=== PATIENT | female | born 1940 | race Caucasian/White ===

== ENCOUNTER → 2017-05-07 | Outpatient (CLI) | payer MEDICARE, OTHER ==
[~2017-05-07] MED LIST: ACET-1757 PO; AMLO5TAB4 PO; ESTR1.5T4 PO; FEXO180T72 PO; HYDR1TAB12 PO; ONDA4TAB13 SL; OXYC-302 PO; PROC10TA PO; VALS160T3 PO; VERA200C2 PO; [UNRECOGNIZED DRUG - OTHER]; [UNRECOGNIZED DRUG - REMARK]
== END | disposition home or self-care (01) ==
LOC: CFH 13:33
PROVIDERS: ATTEND Physician Assistant
DX: M51.16 Intervertebral disc disorders with radiculopathy, lumbar region (principal); M48.061 Spinal stenosis, lumbar region without neurogenic claudication
CPT/HCPCS: 72148

== ENCOUNTER → 2017-06-19 | Outpatient (CLI) | payer MEDICARE, OTHER ==
[~2017-06-19] MED LIST changes: +[UNRECOGNIZED DRUG - REMARK] PO
[2017-06-19 13:41] LABS: BASOPHILS # (AUTO) 0.04 x10^3/uL (0-0.1); BASOPHILS % (AUTO) 1 % (0-1); EOSINOPHILS # (AUTO) 0.09 x10^3/uL (0-0.4); EOSINOPHILS % (AUTO) 2 % (1-7); LYMPHOCYTES # (AUTO) 0.54 x10^3/uL (1-3.4); LYMPHOCYTES % (AUTO) 13 % (22-44); MD NO; MEAN CORPUSCULAR HEMOGLOBIN 28.7 pg (27.0-34.8); MEAN CORPUSCULAR HGB CONC 33.4 g/dL (32.4-35.8); MEAN CORPUSCULAR VOLUME 85.9 fL (80-100); MONOCYTES # (AUTO) 0.39 x10^3/uL (0.2-0.8); MONOCYTES % (AUTO) 9 % (2-9); NEUTROPHILS # (AUTO) 3.14 x10^3/uL (1.8-6.8); NEUTROPHILS % (AUTO) 75 % (42-75); PLATELET COUNT 231 x10^3/uL (130-400); RED BLOOD COUNT 4.29 x10^6/uL (3.82-5.3); RED CELL DISTRIBUTION WIDTH 15.4 % (9.6-15.2)
[2017-06-19 13:46] LABS: INTERNATIONAL NORMALIZED RATIO 0.96 (0.93-1.1)
[2017-06-19 13:49] LABS: ALANINE AMINOTRANSFERASE 16 U/L (12-78); ALBUMIN 3.9 g/dL (3.4-5.0); ANION GAP 8 mmol/L (5-15); CALCIUM 9.5 mg/dL (8.5-10.1); CHLORIDE 110 mmol/L (98-107); CREATININE 1.34 mg/dL (0.55-1.02)
[2017-06-19 13:52] LABS: ALKALINE PHOSPHATASE 63 U/L (45-117); BILIRUBIN,TOTAL 0.4 mg/dL (0.2-1.0)
[2017-06-19 13:57] LABS: MICROSCOPIC AUTO
[2017-06-19 14:42] LABS: CULTURE INDICATED? YES
== END | disposition home or self-care (01) ==
LOC: STAR 12:16
PROVIDERS: ATTEND Neurological Surgery
DX: Z01.818 Encounter for other preprocedural examination (principal); I44.5 Left posterior fascicular block; I10 Essential (primary) hypertension; M51.9 Unspecified thoracic, thoracolumbar and lumbosacral intervertebral disc disorder; M54.16 Radiculopathy, lumbar region; R91.8 Other nonspecific abnormal finding of lung field
CPT/HCPCS: 36415; 71046; 80053; 81001; 85025; 85610; 85730; 87077; 87086; 87186; 93005

== ENCOUNTER 2017-06-25 05:22 | Day surgery (SDC) | payer MEDICARE, OTHER ==
[2017-06-19 13:09] VITALS: BP 107/66
[~2017-06-25] VITALS: Ht 157.5 cm; Wt 78.3 kg
[2017-06-25] MEDS ORDERED: BUPIVACAINE/PF 0.5% ONE (06:16)
[2017-06-25] MEDS ORDERED: VANCOMYCIN 1,000 MG ONE (06:17)
[2017-06-25] MEDS ORDERED: THROMBIN 5,000 UNIT VIAL TP ONE (06:17)
[2017-06-25] MEDS ORDERED: EPINEPHRINE 1 MG/ML, 1ML ONE (06:18)
[2017-06-25] MEDS ORDERED: BACITRACIN 50,000 UNIT ONE (06:18)
[2017-06-25] MEDS ORDERED: LIDOCAINE 1%, 2ML SQ PRN (06:30)
[2017-06-25] MEDS ORDERED: LACTATED RINGERS 1,000 ML IV SCH (06:30)
[2017-06-25] MEDS ORDERED: CIPR500T3 PO (06:32)
[2017-06-25 06:33] VITALS: BP 107/66
[2017-06-25] MEDS ORDERED: TRAM50TA2 PO (06:33)
[2017-06-25] MEDS ORDERED: FAMOTIDINE 20 MG TABLET ONE (06:50)
[2017-06-25] MEDS ORDERED: GABAPENTIN 300 MG CAPSULE ONE (06:50)
[2017-06-25] MEDS ORDERED: FENTANYL PF 250 MCG/5ML ONE (06:51)
[2017-06-25] MEDS ORDERED: KETAMINE 10 MG/ML, 20ML ONE (06:51)
[2017-06-25] MEDS ORDERED: ACETAMINOPHEN 500 MG TABLET ONE (06:51)
[2017-06-25] MEDS ORDERED: TAMSULOSIN 0.4 MG CAP.ER.24H ONE (06:51)
[2017-06-25] MEDS ORDERED: FAMOTIDINE 20 MG TABLET PO ONE (07:00)
[2017-06-25] MEDS ORDERED: GABAPENTIN 300 MG CAPSULE PO ONE (07:00)
[2017-06-25] MEDS ORDERED: ACETAMINOPHEN 500 MG TABLET PO ONE (07:00)
[2017-06-25] MEDS ORDERED: TAMSULOSIN 0.4 MG CAP.ER.24H PO ONE (07:00)
[2017-06-25] MEDS ORDERED: LIDOCAINE-MPF 2% ,5ML ONE (07:04)
[2017-06-25] MEDS ORDERED: PROPOFOL 10 MG/ML, 20ML ONE (07:04)
[2017-06-25] MEDS ORDERED: NEOSTIGMINE 1 MG/ML, 10ML ONE (07:04)
[2017-06-25] MEDS ORDERED: SUCCINYLCHOLINE 20 MG/ML, 10ML ONE (07:04)
[2017-06-25] MEDS ORDERED: ROCURONIUM 10 MG/ML,10ML ONE (07:04)
[2017-06-25] MEDS ORDERED: CEFAZOLIN 1,000 MG ONE (07:04)
[2017-06-25] MEDS ORDERED: ONDANSETRON 2MG/ML, 2ML ONE (07:04)
[2017-06-25] MEDS ORDERED: GLYCOPYRROLATE 0.2MG/1ML, 5ML ONE (07:04)
[2017-06-25] MEDS ORDERED: EPHEDRINE 50 MG/ML, 1ML ONE (07:04)
[2017-06-25] MEDS ORDERED: LIDOCAINE-MPF 1%, 2ML ONE (07:13)
[2017-06-25] MEDS ORDERED: morphine SULFATE 10 MG/ML, 1ML IV PRN (08:00)
[2017-06-25] MEDS ORDERED: PROMETHAZINE 25 MG/ML, 1ML IV PRN (08:00)
[2017-06-25] MEDS ORDERED: ALBUTEROL SULFATE 2.5 MG/3 ML NPPB PRN (08:00)
[2017-06-25] MEDS ORDERED: DIAZEPAM 5 MG/ML, 2ML IVPush PRN (08:00)
[2017-06-25] MEDS ORDERED: OXYcodone 5 MG/5 ML ORAL.SOL UDC PO PRN (08:00)
[2017-06-25] MEDS ORDERED: OXYC-302 PO (08:21)
[2017-06-25] MEDS ORDERED: METH500T97 PO (08:21)
[2017-06-25] MEDS ORDERED: FENTANYL PF 100 MCG/2ML ONE (08:29)
[2017-06-25] MEDS ORDERED: OXYcodone 5 MG/5 ML ORAL.SOL UDC ONE (08:30)
[2017-06-25] MEDS: FENTANYL PF 100 MCG/2ML IV PRN ×4 (08:37→09:27)
[2017-06-25] MEDS ORDERED: PROMETHAZINE 25 MG/ML, 1ML ONE (09:07)
== END 2017-06-25 12:15 ==
LOC: OUT 05:22
PROVIDERS: ATTEND Neurological Surgery
DX: M51.17 Intervertebral disc disorders with radiculopathy, lumbosacral region (principal); M48.061 Spinal stenosis, lumbar region without neurogenic claudication; I10 Essential (primary) hypertension
CPT/HCPCS: 63030; 63056; 72100; J0171; J0330; J0690; J2405; J2550; J2704; J2710; J3010; J3370; J3490; J7120

== ENCOUNTER → 2017-09-02 | Outpatient (CLI) | payer MEDICARE, OTHER ==
[~2017-09-02] MED LIST changes: +CIPR500T3 PO; +METH500T97 PO; +TRAM50TA2 PO
[2017-09-02 12:50] LABS: BASOPHILS # (AUTO) 0.02 x10^3/uL (0-0.1); BASOPHILS % (AUTO) 1 % (0-1); EOSINOPHILS # (AUTO) 0.14 x10^3/uL (0-0.4); EOSINOPHILS % (AUTO) 3 % (1-7); LYMPHOCYTES # (AUTO) 0.83 x10^3/uL (1-3.4); LYMPHOCYTES % (AUTO) 17 % (22-44); MD NO; MEAN CORPUSCULAR HEMOGLOBIN 29.3 pg (27.0-34.8); MEAN CORPUSCULAR HGB CONC 33.9 g/dL (32.4-35.8); MEAN CORPUSCULAR VOLUME 86.6 fL (80-100); MEAN PLATELET VOLUME 7.7 fL (7.4-10.4); MONOCYTES % (AUTO) 8 % (2-9); NEUTROPHILS # (AUTO) 3.43 x10^3/uL (1.8-6.8); NEUTROPHILS % (AUTO) 71 % (42-75); PLATELET COUNT 243 x10^3/uL (130-400); RED BLOOD COUNT 4.13 x10^6/uL (3.82-5.3)
[2017-09-02 13:02] LABS: ALANINE AMINOTRANSFERASE 24 U/L (12-78); ALBUMIN 3.9 g/dL (3.4-5.0); ANION GAP 11 mmol/L (5-15); CALCIUM 9.2 mg/dL (8.5-10.1); CHLORIDE 109 mmol/L (98-107); CHOLESTEROL, TOTAL 167 mg/dL (140-239); CREATININE 1.27 mg/dL (0.55-1.02)
[2017-09-02 13:12] LABS: ALKALINE PHOSPHATASE 64 U/L (45-117); BILIRUBIN,TOTAL 0.4 mg/dL (0.2-1.0); CHOL/HDL RATIO 2.1; HDL CHOL % 48 % (28-40); HDL CHOLESTEROL (DIRECT) 80 mg/dL (40-60); LDL CHOLESTEROL,CALCULATED 67 mg/dL (54-169); LDL/HDL RATIO 0.8 (0.5-3.0); TRIGLYCERIDES 99 mg/dL (50-200); VLDL CHOLESTEROL 20 mg/dL (0-25)
[2017-09-02 13:26] LABS: HEMOGLOBIN A1C 6.7 % (4.2-6.3)
== END | disposition home or self-care (01) ==
LOC: LAB 12:36
PROVIDERS: ATTEND Internal Medicine
DX: I10 Essential (primary) hypertension (principal); R73.03 Prediabetes; R94.6 Abnormal results of thyroid function studies
CPT/HCPCS: 36415; 80053; 80061; 83036; 84443; 85025

== ENCOUNTER → 2017-09-16 | Outpatient (CLI) | payer MEDICARE, OTHER | END | disposition home or self-care (01) | LOC: CFH 11:12 | PROVIDERS: ATTEND Neurological Surgery | DX: M51.37 Other intervertebral disc degeneration, lumbosacral region (principal); Z78.0 Asymptomatic menopausal state | CPT/HCPCS: 77080 ==

== ENCOUNTER → 2017-10-15 | Outpatient (CLI) | payer MEDICARE, OTHER ==
[~2017-10-15] MED LIST changes: +CYCL-259 PO; +HYDR-3240 PO; +POLY10DR3 EACHEYE; -PROC10TA PO; +PROC10TA2 PO
[2017-10-15 15:10] LABS: BASOPHILS # (AUTO) 0.06 x10^3/uL (0-0.1); BASOPHILS % (AUTO) 1 % (0-1); EOSINOPHILS # (AUTO) 0.17 x10^3/uL (0-0.4); EOSINOPHILS % (AUTO) 3 % (1-7); LYMPHOCYTES # (AUTO) 1.09 x10^3/uL (1-3.4); LYMPHOCYTES % (AUTO) 19 % (22-44); MD NO; MEAN CORPUSCULAR HEMOGLOBIN 29.2 pg (27.0-34.8); MEAN CORPUSCULAR HGB CONC 33.4 g/dL (32.4-35.8); MEAN CORPUSCULAR VOLUME 87.2 fL (80-100); MEAN PLATELET VOLUME 7.8 fL (7.4-10.4); MONOCYTES # (AUTO) 0.49 x10^3/uL (0.2-0.8); MONOCYTES % (AUTO) 9 % (2-9); NEUTROPHILS # (AUTO) 3.84 x10^3/uL (1.8-6.8); NEUTROPHILS % (AUTO) 68 % (42-75); PLATELET COUNT 252 x10^3/uL (130-400); RED BLOOD COUNT 4.15 x10^6/uL (3.82-5.3); RED CELL DISTRIBUTION WIDTH 15.7 % (9.6-15.2)
[2017-10-15 15:17] LABS: INTERNATIONAL NORMALIZED RATIO 0.96 (0.93-1.1); PROTHROMBIN TIME 9.9 Seconds (9.6-11.5)
[2017-10-15 15:19] LABS: MICROSCOPIC AUTO
[2017-10-15 15:22] LABS: ALANINE AMINOTRANSFERASE 23 U/L (12-78); ALBUMIN 3.8 g/dL (3.4-5.0); ANION GAP 3 mmol/L (5-15); CALCIUM 9.1 mg/dL (8.5-10.1); CHLORIDE 108 mmol/L (98-107); CREATININE 1.65 mg/dL (0.55-1.02)
[2017-10-15 15:24] LABS: ALKALINE PHOSPHATASE 73 U/L (45-117); BILIRUBIN,TOTAL 0.3 mg/dL (0.2-1.0); TOTAL PROTEIN 7.9 g/dL (6.4-8.2)
[2017-10-15 15:26] LABS: CULTURE INDICATED? YES
== END | disposition home or self-care (01) ==
LOC: STAR 13:48
PROVIDERS: ATTEND Neurological Surgery
DX: Z01.818 Encounter for other preprocedural examination (principal); M51.36 Other intervertebral disc degeneration, lumbar region; Z85.41 Personal history of malignant neoplasm of cervix uteri; M54.16 Radiculopathy, lumbar region; M48.062 Spinal stenosis, lumbar region with neurogenic claudication
CPT/HCPCS: 36415; 71046; 72110; 80053; 81001; 85025; 85610; 85730; 87086; 93005

== ENCOUNTER 2017-10-21 05:11 | Inpatient (IN) | payer MEDICARE, OTHER ==
[~2017-10-21] VITALS: Ht 157.5 cm; Wt 71.9 kg
[~2017-10-21 05:11] MED LIST changes: -CYCL-259 PO
[2017-10-21] MEDS ORDERED: LACTATED RINGERS 1,000 ML IV SCH (05:48)
[2017-10-21 06:10] VITALS: BP 117/59
[2017-10-21] MEDS ORDERED: PROPOFOL 10 MG/ML, 20ML ONE (06:33)
[2017-10-21] MEDS ORDERED: CEFAZOLIN 1,000 MG ONE ×2 (06:34)
[2017-10-21] MEDS ORDERED: SUCCINYLCHOLINE 20 MG/ML, 10ML ONE (06:34)
[2017-10-21] MEDS ORDERED: ROCURONIUM 10MG/ML,5ML ONE (06:34)
[2017-10-21] MEDS ORDERED: LIDOCAINE-MPF 2% ,5ML ONE (06:34)
[2017-10-21] MEDS ORDERED: FENTANYL PF 250 MCG/5ML ONE (06:38)
[2017-10-21] MEDS ORDERED: MIDAZOLAM 1 MG/ML, 2ML ONE (06:38)
[2017-10-21] MEDS ORDERED: PROPOFOL 50 ML ONE (06:39)
[2017-10-21] MEDS ORDERED: EPHEDRINE 50 MG/ML, 1ML IVPush PRN (07:00)
[2017-10-21] MEDS ORDERED: ONDANSETRON ODT 8 MG PO PRN (07:00)
[2017-10-21] MEDS ORDERED: GABAPENTIN 300 MG CAPSULE PO ONE (07:00)
[2017-10-21] MEDS ORDERED: OXYcodone IR 5MG TABLET PO ONE (07:00)
[2017-10-21] MEDS ORDERED: ONDANSETRON ODT 8 MG PO ONE (07:00)
[2017-10-21] MEDS ORDERED: hydrALAzine 20 MG/ML, 1ML IV PRN (07:00)
[2017-10-21] MEDS ORDERED: MORPHINE SULFATE 4 MG/ML, 1ML IVPush PRN (07:00)
[2017-10-21] MEDS ORDERED: DIAZEPAM 5 MG/ML, 2ML IVPush PRN (07:00)
[2017-10-21] MEDS ORDERED: ALBUTEROL SULFATE 2.5 MG/3 ML NPPB PRN (07:00)
[2017-10-21] MEDS ORDERED: OXYcodone 5 MG/5 ML ORAL.SOL UDC PO PRN (07:00)
[2017-10-21] MEDS ORDERED: FENTANYL PF 100 MCG/2ML IV PRN (07:00)
[2017-10-21] MEDS ORDERED: METOPROLOL 1 MG/ML, 5ML IV PRN (07:00)
[2017-10-21] MEDS ORDERED: ACETAMINOPHEN 500 MG TABLET PO ONE (07:00)
[2017-10-21] MEDS ORDERED: LABETALOL 5MG/ML, 20ML IV PRN (07:00)
[2017-10-21] MEDS ORDERED: PROMETHAZINE 25 MG/ML, 1ML IV PRN (07:00)
[2017-10-21] MEDS ORDERED: BACITRACIN 50,000 UNIT IRRIG ONE (07:33)
[2017-10-21] MEDS ORDERED: THROMBIN 20,000 UNIT VIAL TP ONE ×2 (07:34→11:05)
[2017-10-21] MEDS ORDERED: HEPARIN 1,000 UNITS/ML, 30ML IVPB ONE (07:40)
[2017-10-21] MEDS ORDERED: NEOSTIGMINE 1 MG/ML, 10ML ONE (08:41)
[2017-10-21] MEDS ORDERED: ONDANSETRON 2MG/ML, 2ML ONE (08:42)
[2017-10-21] MEDS ORDERED: GLYCOPYRROLATE 0.4 MG/2 ML, 2ML ONE (08:42)
[2017-10-21] MEDS ORDERED: LABETALOL 5MG/ML, 20ML IVPush PRN (09:00)
[2017-10-21] MEDS ORDERED: VALSARTAN 160 MG TABLET PO SCH ×2 (09:00→22:30)
[2017-10-21] MEDS ORDERED: AMLODIPINE 5 MG TABLET PO SCH (09:00)
[2017-10-21] MEDS ORDERED: ONDANSETRON 2MG/ML, 2ML IVPush PRN (09:00)
[2017-10-21] MEDS ORDERED: PHARMACY MAY ADJ FOR RENAL FX MC PRN (09:00)
[2017-10-21] MEDS: POLYTRIM OPHTH 10ML EACHEYE SCH ×5 (09:00→23:02)
[2017-10-21] MEDS ORDERED: SENNA/DOCUSATE TABLET PO PRN (09:00)
[2017-10-21] MEDS ORDERED: OXYcodone/APAP 5/325MG TABLET PO PRN (09:00)
[2017-10-21] MEDS ORDERED: BISACODYL 10 MG SUPP PR PRN (09:00)
[2017-10-21] MEDS ORDERED: PROMETHAZINE 25 MG/ML, 1ML IM PRN (09:00)
[2017-10-21] MEDS ORDERED: DIPHENHYDRAMINE 50 MG CAPSULE PO PRN (09:00)
[2017-10-21] MEDS ORDERED: DIPHENHYDRAMINE 50 MG/ML, 1ML IVPush PRN (09:00)
[2017-10-21] MEDS ORDERED: MAGNESIUM HYDROXIDE 8%, 30ML UDC PO PRN (09:00)
[2017-10-21] MEDS: NS + 20MEQ KCL 1,000 ML IV SCH ×2 (09:00→20:40)
[2017-10-21] MEDS ORDERED: MORPHINE SULFATE 4 MG/ML, 1ML ONE (09:17)
[2017-10-21] MEDS ORDERED: OXYcodone 5 MG/5 ML ORAL.SOL UDC ONE (10:01)
[2017-10-21] MEDS ORDERED: HEPARIN 1,000 UNITS/ML, 30ML ONE (11:01)
[2017-10-21 12:48] VITALS: BP 102/59
[2017-10-21] MEDS: CEFAZOLIN PMX 1GM/50ML 50 ML IVPB SCH ×2 (15:02→23:01)
[2017-10-21 19:16] VITALS: BP 115/58
[2017-10-21] MEDS: HYDROcodone/APAP 5/325 TABLET PO PRN (22:10)
[2017-10-22 00:05] VITALS: BP 127/67
[2017-10-22] MEDS: POLYTRIM OPHTH 10ML EACHEYE SCH ×7 (01:30→21:00)
[2017-10-22 03:51] VITALS: BP 107/56
[2017-10-22] MEDS: HYDROcodone/APAP 5/325 TABLET PO PRN ×4 (04:28→21:49)
[2017-10-22 05:16] LABS: BASOPHILS # (AUTO) 0.04 x10^3/uL (0-0.1); BASOPHILS % (AUTO) 1 % (0-1); EOSINOPHILS # (AUTO) 0.08 x10^3/uL (0-0.4); EOSINOPHILS % (AUTO) 1 % (1-7); LYMPHOCYTES # (AUTO) 0.71 x10^3/uL (1-3.4); LYMPHOCYTES % (AUTO) 11 % (22-44); MD NO; MEAN CORPUSCULAR HEMOGLOBIN 28.9 pg (27.0-34.8); MEAN CORPUSCULAR HGB CONC 33.2 g/dL (32.4-35.8); MEAN CORPUSCULAR VOLUME 87.2 fL (80-100); MEAN PLATELET VOLUME 8.1 fL (7.4-10.4); MONOCYTES # (AUTO) 0.47 x10^3/uL (0.2-0.8); MONOCYTES % (AUTO) 7 % (2-9); NEUTROPHILS # (AUTO) 5.06 x10^3/uL (1.8-6.8); NEUTROPHILS % (AUTO) 80 % (42-75); PLATELET COUNT 174 x10^3/uL (130-400); RED BLOOD COUNT 3.78 x10^6/uL (3.82-5.3); RED CELL DISTRIBUTION WIDTH 16.3 % (9.6-15.2)
[2017-10-22 05:26] LABS: ANION GAP 9 mmol/L (5-15); CHLORIDE 111 mmol/L (98-107)
[2017-10-22 05:27] LABS: CREATININE 1.32 mg/dL (0.55-1.02)
[2017-10-22 07:20] VITALS: BP 95/57
[2017-10-22] MEDS: AMLODIPINE 5 MG TABLET PO SCH (09:04)
[2017-10-22] MEDS ORDERED: ENOXAPARIN 30 MG/0.3 ML SQ SCH (11:00)
[2017-10-22] MEDS: NS + 20MEQ KCL 1,000 ML IV SCH (11:42)
[2017-10-22 12:48] VITALS: BP 113/60
[2017-10-22 20:16] VITALS: BP 123/66
[2017-10-22] MEDS: LORATADINE 10 MG TABLET PO SCH (21:49)
[2017-10-22] MEDS: VALSARTAN 160 MG TABLET PO SCH (21:49)
[2017-10-23] MEDS: NS + 20MEQ KCL 1,000 ML IV SCH ×2 (00:51→21:00)
[2017-10-23] MEDS: POLYTRIM OPHTH 10ML EACHEYE SCH ×8 (03:00→22:14)
[2017-10-23 03:03] VITALS: BP 127/62
[2017-10-23 06:00] LABS: BASOPHILS # (AUTO) 0.03 x10^3/uL (0-0.1); BASOPHILS % (AUTO) 1 % (0-1); EOSINOPHILS # (AUTO) 0.18 x10^3/uL (0-0.4); EOSINOPHILS % (AUTO) 3 % (1-7); LYMPHOCYTES # (AUTO) 0.95 x10^3/uL (1-3.4); LYMPHOCYTES % (AUTO) 15 % (22-44); MD NO; MEAN CORPUSCULAR HEMOGLOBIN 29.6 pg (27.0-34.8); MEAN CORPUSCULAR HGB CONC 33.6 g/dL (32.4-35.8); MEAN CORPUSCULAR VOLUME 88.1 fL (80-100); MONOCYTES # (AUTO) 0.63 x10^3/uL (0.2-0.8); MONOCYTES % (AUTO) 10 % (2-9); NEUTROPHILS # (AUTO) 4.72 x10^3/uL (1.8-6.8); NEUTROPHILS % (AUTO) 72 % (42-75); PLATELET COUNT 167 x10^3/uL (130-400); RED BLOOD COUNT 3.29 x10^6/uL (3.82-5.3); RED CELL DISTRIBUTION WIDTH 15.7 % (9.6-15.2)
[2017-10-23 06:09] LABS: ANION GAP 5 mmol/L (5-15); CALCIUM 8.5 mg/dL (8.5-10.1); CHLORIDE 112 mmol/L (98-107); CREATININE 1.11 mg/dL (0.55-1.02)
[2017-10-23 06:52] VITALS: BP 134/68
[2017-10-23] MEDS ORDERED: HYDROmorphone 2 MG/ML, 1ML ONE (08:14)
[2017-10-23] MEDS: HYDROmorphone 1 MG/ML, 1ML IVPush PRN ×2 (08:18→08:25)
[2017-10-23] MEDS: AMLODIPINE 5 MG TABLET PO SCH (08:19)
[2017-10-23] MEDS: HYDROcodone/APAP 5/325 TABLET PO PRN (12:38)
[2017-10-23 13:29] VITALS: BP 132/73
[2017-10-23] MEDS ORDERED: CEFAZOLIN 1,000 MG ONE ×2 (15:44)
[2017-10-23] MEDS ORDERED: FENTANYL PF 250 MCG/5ML ONE (15:44)
[2017-10-23] MEDS ORDERED: WATER-INJECTION,STERILE 10 ML IV ONE (15:44)
[2017-10-23] MEDS ORDERED: PROPOFOL 10 MG/ML, 20ML ONE (15:46)
[2017-10-23] MEDS ORDERED: ROCURONIUM 10MG/ML,5ML ONE (15:47)
[2017-10-23] MEDS ORDERED: GLYCOPYRROLATE 0.2MG/1ML, 5ML ONE (15:48)
[2017-10-23] MEDS ORDERED: NEOSTIGMINE 1 MG/ML, 10ML ONE (15:48)
[2017-10-23] MEDS ORDERED: PROPOFOL 50 ML ONE ×2 (15:52→17:14)
[2017-10-23] MEDS ORDERED: ACETAMINOPHEN 500 MG TABLET PO ONE (16:00)
[2017-10-23] MEDS ORDERED: ONDANSETRON ODT 8 MG PO PRN ×2 (16:00→16:30)
[2017-10-23] MEDS ORDERED: GABAPENTIN 300 MG CAPSULE PO ONE (16:00)
[2017-10-23] MEDS ORDERED: EPINEPHRINE 1 MG/ML, 1ML ONE (16:02)
[2017-10-23] MEDS ORDERED: THROMBIN 5,000 UNIT VIAL TP ONE (16:02)
[2017-10-23] MEDS ORDERED: BUPIVACAINE/PF 0.5% ONE (16:02)
[2017-10-23] MEDS ORDERED: BACITRACIN 50,000 UNIT ONE (16:03)
[2017-10-23] MEDS ORDERED: ONDANSETRON 2MG/ML, 2ML ONE ×2 (16:18)
[2017-10-23] MEDS ORDERED: DEXAMETHASONE 4 MG/ML, 1ML ONE ×2 (16:19)
[2017-10-23] MEDS ORDERED: VANCOMYCIN 1,000 MG ONE (16:20)
[2017-10-23] MEDS ORDERED: MEPERIDINE/PF 25MG/0.5ML IVPush PRN (16:30)
[2017-10-23] MEDS ORDERED: FENTANYL PF 100 MCG/2ML IV PRN (16:30)
[2017-10-23] MEDS ORDERED: PROMETHAZINE 25 MG/ML, 1ML IM PRN (16:30)
[2017-10-23] MEDS ORDERED: MORPHINE SULFATE 4 MG/ML, 1ML IVPush PRN (16:30)
[2017-10-23] MEDS ORDERED: PROMETHAZINE 25 MG SUPP PR PRN (16:30)
[2017-10-23] MEDS ORDERED: PROMETHAZINE 12.5 MG SUPP PR PRN (16:30)
[2017-10-23] MEDS ORDERED: PROMETHAZINE 25 MG/ML, 1ML IV PRN (16:30)
[2017-10-23] MEDS ORDERED: HYDROmorphone 1 MG/ML, 1ML IV PRN (16:30)
[2017-10-23] MEDS ORDERED: LABETALOL 5MG/ML, 20ML IV PRN (16:30)
[2017-10-23] MEDS ORDERED: OXYcodone 5 MG/5 ML ORAL.SOL UDC PO PRN (16:30)
[2017-10-23] MEDS ORDERED: hydrALAzine 20 MG/ML, 1ML IV PRN (16:30)
[2017-10-23] MEDS ORDERED: OXYcodone 5 MG/5 ML ORAL.SOL UDC ONE (19:12)
[2017-10-23] MEDS ORDERED: PROMETHAZINE 25 MG/ML, 1ML ONE (19:33)
[2017-10-23 20:56] VITALS: BP 114/63
[2017-10-23] MEDS: LORATADINE 10 MG TABLET PO SCH (22:14)
[2017-10-23] MEDS: VALSARTAN 160 MG TABLET PO SCH (22:14)
[2017-10-24 00:46] VITALS: BP 92/55
[2017-10-24] MEDS: POLYTRIM OPHTH 10ML EACHEYE SCH ×10 (00:58→23:57)
[2017-10-24 04:28] VITALS: BP 106/60
[2017-10-24 05:09] LABS: BASOPHILS # (AUTO) 0.03 x10^3/uL (0-0.1); BASOPHILS % (AUTO) 0 % (0-1); EOSINOPHILS # (AUTO) 0.31 x10^3/uL (0-0.4); EOSINOPHILS % (AUTO) 5 % (1-7); LYMPHOCYTES # (AUTO) 0.77 x10^3/uL (1-3.4); LYMPHOCYTES % (AUTO) 12 % (22-44); MD NO; MEAN CORPUSCULAR HEMOGLOBIN 29.2 pg (27.0-34.8); MEAN CORPUSCULAR HGB CONC 33.4 g/dL (32.4-35.8); MEAN CORPUSCULAR VOLUME 87.4 fL (80-100); MONOCYTES # (AUTO) 0.54 x10^3/uL (0.2-0.8); MONOCYTES % (AUTO) 9 % (2-9); NEUTROPHILS # (AUTO) 4.72 x10^3/uL (1.8-6.8); NEUTROPHILS % (AUTO) 74 % (42-75); PLATELET COUNT 165 x10^3/uL (130-400); RED BLOOD COUNT 3.35 x10^6/uL (3.82-5.3); RED CELL DISTRIBUTION WIDTH 15.7 % (9.6-15.2)
[2017-10-24 05:10] LABS: ANION GAP 6 mmol/L (5-15); CALCIUM 8.8 mg/dL (8.5-10.1); CHLORIDE 111 mmol/L (98-107)
[2017-10-24 05:11] LABS: CREATININE 1.26 mg/dL (0.55-1.02)
[2017-10-24] MEDS: HYDROcodone/APAP 5/325 TABLET PO PRN ×3 (06:18→21:17)
[2017-10-24 07:01] VITALS: BP 109/49
[2017-10-24] MEDS ORDERED: ENOXAPARIN 40 MG/0.4 ML SQ SCH (09:00)
[2017-10-24] MEDS: AMLODIPINE 5 MG TABLET PO SCH (09:01)
[2017-10-24] MEDS: NS + 20MEQ KCL 1,000 ML IV SCH (10:47)
[2017-10-24 13:31] VITALS: BP 105/65
[2017-10-24 20:38] VITALS: BP 110/55
[2017-10-24] MEDS: VALSARTAN 160 MG TABLET PO SCH (21:00)
[2017-10-24] MEDS: LORATADINE 10 MG TABLET PO SCH (21:14)
[2017-10-25 01:43] VITALS: BP 101/62
[2017-10-25 05:54] LABS: ANION GAP 3 mmol/L (5-15); CALCIUM 8.4 mg/dL (8.5-10.1); CHLORIDE 111 mmol/L (98-107); CREATININE 1.18 mg/dL (0.55-1.02)
[2017-10-25] MEDS ORDERED: ENOXAPARIN 30 MG/0.3 ML SQ SCH (06:00)
[2017-10-25 06:02] LABS: BASOPHILS # (AUTO) 0.03 x10^3/uL (0-0.1); BASOPHILS % (AUTO) 1 % (0-1); EOSINOPHILS # (AUTO) 0.26 x10^3/uL (0-0.4); EOSINOPHILS % (AUTO) 4 % (1-7); LYMPHOCYTES # (AUTO) 0.86 x10^3/uL (1-3.4); LYMPHOCYTES % (AUTO) 14 % (22-44); MD NO; MEAN CORPUSCULAR HEMOGLOBIN 29.3 pg (27.0-34.8); MEAN CORPUSCULAR HGB CONC 33.5 g/dL (32.4-35.8); MEAN CORPUSCULAR VOLUME 87.7 fL (80-100); MEAN PLATELET VOLUME 7.9 fL (7.4-10.4); MONOCYTES # (AUTO) 0.58 x10^3/uL (0.2-0.8); MONOCYTES % (AUTO) 10 % (2-9); NEUTROPHILS # (AUTO) 4.23 x10^3/uL (1.8-6.8); NEUTROPHILS % (AUTO) 71 % (42-75); PLATELET COUNT 190 x10^3/uL (130-400); RED BLOOD COUNT 3.37 x10^6/uL (3.82-5.3); RED CELL DISTRIBUTION WIDTH 15.6 % (9.6-15.2)
[2017-10-25] MEDS: POLYTRIM OPHTH 10ML EACHEYE SCH ×2 (06:06→08:45)
[2017-10-25] MEDS: HYDROcodone/APAP 5/325 TABLET PO PRN ×2 (06:09→10:52)
[2017-10-25 08:00] VITALS: BP 136/75
[2017-10-25] MEDS ORDERED: CYCL-259 PO (08:40)
[2017-10-25] MEDS ORDERED: HYDR-3240 PO (08:41)
[2017-10-25] MEDS: AMLODIPINE 5 MG TABLET PO SCH (08:41)
[2017-10-25] MEDS: VALSARTAN 160 MG TABLET PO SCH (08:42)
[2017-10-25] MEDS ORDERED: NS + 20MEQ KCL 1,000 ML IV SCH (09:00)
[2017-10-25 10:45] VITALS: BP 125/80
== END 2017-10-25 11:05 | disposition home or self-care (01) | DRG 453 ==
LOC: ORIP 05:11 → 4NOR 10:22
PROVIDERS: ADMIT Neurological Surgery; ATTEND Neurological Surgery
PROC: 0SB40ZZ Excision of Lumbosacral Disc, Open Approach (ICD-10-PCS; 2017-10-21)
PROC: 4A11X4G Monitoring of Peripheral Nervous Electrical Activity, Intraoperative, External Approach (ICD-10-PCS; 2017-10-21)
PROC: 0SG30A0 Fusion of Lumbosacral Joint with Interbody Fusion Device, Anterior Approach, Anterior Column, Open Approach (ICD-10-PCS; principal; 2017-10-21 07:00)
PROC: 0SG3071 Fusion of Lumbosacral Joint with Autologous Tissue Substitute, Posterior Approach, Posterior Column, Open Approach (ICD-10-PCS; 2017-10-23)
PROC: 4A11X4G Monitoring of Peripheral Nervous Electrical Activity, Intraoperative, External Approach (ICD-10-PCS; 2017-10-23)
DX: M51.17 Intervertebral disc disorders with radiculopathy, lumbosacral region (principal); N17.0 Acute kidney failure with tubular necrosis; G89.29 Other chronic pain; M54.9 Dorsalgia, unspecified; E66.9 Obesity, unspecified; M48.061 Spinal stenosis, lumbar region without neurogenic claudication; R10.9 Unspecified abdominal pain; Z68.29 Body mass index [BMI] 29.0-29.9, adult; I10 Essential (primary) hypertension
CPT/HCPCS: 36415; 72100; 74018; 80048; 85025; 86850; 86900; C1713; C1729; C1776; J0171; J0690; J1100; J1170; J1644; J1650; J2250; J2405; J2550; J2704; J2710; J3010; J3370; J3480; J3490; Q0162; C1762; J0330; J7120

== ENCOUNTER 2018-02-02 13:41 | Emergency (ER) | payer MEDICARE, OTHER ==
[~2018-02-02] VITALS: Ht 157.5 cm; Wt 79.2 kg
[~2018-02-02 13:41] MED LIST changes: +CYCL-259 PO
[2018-02-02 14:51] VITALS: BP 133/76
== END 2018-02-02 15:35 | disposition home or self-care (01) ==
LOC: ED 15:20
DX: S00.03XA Contusion of scalp, initial encounter (principal); M54.2 Cervicalgia; Z90.710 Acquired absence of both cervix and uterus; Z90.89 Acquired absence of other organs; Z87.891 Personal history of nicotine dependence; W18.12XA Fall from or off toilet with subsequent striking against object, initial encounter; Y93.89 Activity, other specified; Y92.009 Unspecified place in unspecified non-institutional (private) residence as the place of occurrence of the external cause; Y99.8 Other external cause status
CPT/HCPCS: 70450; 99284

== ENCOUNTER → 2018-07-24 | Outpatient (CLI) | payer MEDICARE, OTHER ==
[~2018-07-24] MED LIST changes: -HYDR1TAB12 PO; +HYDR1TAB13 PO
== END | disposition home or self-care (01) ==
LOC: CFH 10:34
PROVIDERS: ATTEND Orthopaedic Surgery
DX: M75.101 Unspecified rotator cuff tear or rupture of right shoulder, not specified as traumatic (principal)

== ENCOUNTER 2018-10-28 12:34 | Outpatient (CLI) | payer MEDICARE, OTHER | END 2018-10-28 23:59 | disposition home or self-care (01) | LOC: STAR 12:34 | PROVIDERS: ATTEND Orthopaedic Surgery | DX: Z02.9 Encounter for administrative examinations, unspecified (principal) ==

== ENCOUNTER 2018-11-05 05:14 | Day surgery (SDC) | payer MEDICARE, OTHER ==
[~2018-11-05] VITALS: Ht 157.5 cm; Wt 80.0 kg
[~2018-11-05 05:14] MED LIST changes: +OLME5TAB4 PO
[2018-11-05] MEDS ORDERED: LACTATED RINGERS 1,000 ML IV SCH (05:41)
[2018-11-05 06:04] VITALS: BP 119/70
[2018-11-05] MEDS ORDERED: BUPIVACAINE/PF-EPI 0.5% 1:200K ONE (06:05)
[2018-11-05] MEDS ORDERED: LIDOCAINE 1%-EPI 1:100K, 20ML ONE (06:06)
[2018-11-05] MEDS ORDERED: MIDAZOLAM 1 MG/ML, 2ML ONE (06:29)
[2018-11-05] MEDS ORDERED: FENTANYL PF 100 MCG/2ML ONE ×2 (06:29→09:40)
[2018-11-05] MEDS ORDERED: MEPERIDINE/PF 25MG/0.5ML IVPush PRN (07:30)
[2018-11-05] MEDS ORDERED: HYDROmorphone 2 MG/ML, 1ML IVPush PRN (07:30)
[2018-11-05] MEDS ORDERED: ALBUTEROL SULFATE 2.5 MG/3 ML NPPB PRN (07:30)
[2018-11-05] MEDS ORDERED: FENTANYL PF 100 MCG/2ML IV PRN (07:30)
[2018-11-05] MEDS ORDERED: hydrALAzine 20 MG/ML, 1ML IV PRN (07:30)
[2018-11-05] MEDS ORDERED: PROMETHAZINE 25 MG/ML, 1ML IV PRN (07:30)
[2018-11-05] MEDS ORDERED: DIAZEPAM 5 MG/ML, 2ML IVPush PRN (07:30)
[2018-11-05] MEDS ORDERED: ACETAMINOPHEN 325 MG TABLET PO PRN (07:30)
[2018-11-05] MEDS ORDERED: LABETALOL 5MG/ML, 20ML IV PRN (07:30)
[2018-11-05] MEDS ORDERED: OXYcodone 5 MG/5 ML ORAL.SOL UDC PO PRN (07:30)
[2018-11-05] MEDS ORDERED: KETOROLAC 30 MG/1 ML IV PRN (07:30)
[2018-11-05] MEDS ORDERED: ROCURONIUM 10MG/ML,5ML ONE (07:38)
[2018-11-05] MEDS ORDERED: NEOSTIGMINE 1 MG/ML, 10ML ONE (07:38)
[2018-11-05] MEDS ORDERED: ONDANSETRON 2MG/ML, 2ML ONE (07:38)
[2018-11-05] MEDS ORDERED: SUCCINYLCHOLINE 20 MG/ML, 10ML ONE (07:38)
[2018-11-05] MEDS ORDERED: DEXAMETHASONE 4 MG/ML, 1ML ONE (07:38)
[2018-11-05] MEDS ORDERED: CEFAZOLIN 1,000 MG ONE (07:38)
[2018-11-05] MEDS ORDERED: GLYCOPYRROLATE 0.2MG/1ML, 5ML ONE (07:38)
[2018-11-05] MEDS ORDERED: PROPOFOL 10 MG/ML, 20ML ONE (07:38)
[2018-11-05] MEDS ORDERED: PROMETHAZINE 25 MG/ML, 1ML ONE (09:40)
[2018-11-05] MEDS ORDERED: KETOROLAC 30 MG/1 ML ONE (09:55)
[2018-11-05] MEDS ORDERED: OXYcodone 5 MG/5 ML ORAL.SOL UDC ONE (09:55)
== END 2018-11-05 12:20 | disposition home or self-care (01) ==
LOC: OUT 05:14
PROVIDERS: ATTEND Orthopaedic Surgery
DX: S46.011A Strain of muscle(s) and tendon(s) of the rotator cuff of right shoulder, initial encounter (principal); S43.431A Superior glenoid labrum lesion of right shoulder, initial encounter; S46.111A Strain of muscle, fascia and tendon of long head of biceps, right arm, initial encounter; M19.011 Primary osteoarthritis, right shoulder; M75.41 Impingement syndrome of right shoulder; M65.811 Other synovitis and tenosynovitis, right shoulder; D17.21 Benign lipomatous neoplasm of skin and subcutaneous tissue of right arm; I10 Essential (primary) hypertension; Z79.899 Other long term (current) drug therapy; Z87.891 Personal history of nicotine dependence; Z91.040 Latex allergy status; Z88.8 Allergy status to other drugs, medicaments and biological substances; Z90.710 Acquired absence of both cervix and uterus; W18.39XA Other fall on same level, initial encounter; Y93.89 Activity, other specified; Y92.22 Religious institution as the place of occurrence of the external cause; Y99.8 Other external cause status
CPT/HCPCS: 23076; 29823; 29824; 29826; 29827; 29828; 64415; 88305; C1713; J0330; J0690; J1100; J1885; J2250; J2405; J2550; J2704; J2710; J3010; J3490; J7120

== ENCOUNTER → 2020-03-02 | Outpatient (CLI) | payer MEDICARE, OTHER ==
[~2020-03-02] MED LIST changes: -ACET-1757 PO; +ACET-2065 PO; -VERA200C2 PO; +[UNRECOGNIZED DRUG - CODE] PO
== END | disposition home or self-care (01) ==
LOC: RAD 10:08
PROVIDERS: ATTEND Physician Assistant
DX: M51.17 Intervertebral disc disorders with radiculopathy, lumbosacral region (principal); N94.89 Other specified conditions associated with female genital organs and menstrual cycle
CPT/HCPCS: 72148

== ENCOUNTER 2020-06-30 11:50 | Emergency (ER) | payer MEDICARE, OTHER ==
[~2020-06-30] VITALS: Ht 157.5 cm; Wt 86.0 kg
[~2020-06-30 11:50] MED LIST changes: -CIPR500T3 PO; +CIPR500T4 PO; -CYCL-259 PO; +CYCL10TA2 PO; +HYDR-1067 PO; -HYDR-3240 PO; -OXYC-302 PO; +OXYC1TAB14 PO
--- NOTE | 2020-06-30 12:25 | NUR ---
LUQ vs. 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
[2020-06-30] MEDS ORDERED: SITA50TA PO (12:34)
[2020-06-30] MEDS ORDERED: LEVO25TA2 PO (12:34)
[2020-06-30] MEDS ORDERED: GLIP2.5T3 PO (12:34)
--- NOTE | 2020-06-30 13:27 | NUR ---
Recieved report from RHONDA Topete. Pt CMS intact. IV placed per orders. Pt ambulatory with steady gait to restroom.
[2020-06-30] MEDS ORDERED: SODIUM CHLORIDE FLUSH 10ML SYR IVF ONE (13:30)
[2020-06-30 13:33] LABS: BASOPHILS % (AUTO) 2 % (0-1); EOSINOPHILS % (AUTO) 2 % (1-7); LYMPHOCYTES % (AUTO) 18 % (22-44); MEAN CORPUSCULAR HEMOGLOBIN 28.8 pg (27.0-34.8); MEAN CORPUSCULAR HGB CONC 33.3 g/dL (32.4-35.8); MEAN PLATELET VOLUME 7.6 fL (7.4-10.4); MONOCYTES % (AUTO) 7 % (2-9); NEUTROPHILS % (AUTO) 71 % (42-75); PLATELET COUNT 270 x10^3/uL (130-400); RED BLOOD COUNT 4.29 x10^6/uL (3.82-5.3); RED CELL DISTRIBUTION WIDTH 15.5 % (9.6-15.2)
[2020-06-30 13:35] LABS: MD NO
[2020-06-30 13:41] LABS: ALANINE AMINOTRANSFERASE 22 U/L (12-78); ANION GAP 9 mmol/L (5-15); CALCIUM 8.9 mg/dL (8.5-10.1); CHLORIDE 108 mmol/L (98-107); CREATININE 1.34 mg/dL (0.55-1.02)
[2020-06-30 13:47] LABS: ALKALINE PHOSPHATASE 67 U/L (45-117); BILIRUBIN,TOTAL 0.3 mg/dL (0.2-1.0); TROPONIN I < 0.015 ng/mL (0.000-0.045)
[2020-06-30 16:46] VITALS: BP 125/58
== END 2020-06-30 16:48 | disposition home or self-care (01) ==
LOC: ED 14:36
DX: M79.662 Pain in left lower leg (principal); I10 Essential (primary) hypertension; R07.89 Other chest pain; Z85.41 Personal history of malignant neoplasm of cervix uteri
CPT/HCPCS: 36415; 71045; 80053; 84484; 85025; 93005; 99285